=== PATIENT | female | born 1985 | race African-American/Black ===

== ENCOUNTER 2019-10-09 16:22 | Emergency (ER) | payer MEDICAID ==
[~2019-10-09] VITALS: Ht 160 cm; Wt 84.0 kg
[~2019-10-09 16:22] MED LIST: FOLIC ACID; IRON; [UNRECOGNIZED DRUG - OTHER]
[2019-10-09] MEDS ORDERED: TRAMADOL 50MG TABLET PO ONE (18:00)
[2019-10-09 19:55] VITALS: BP 122/67
== END 2019-10-09 19:56 | disposition home or self-care (01) ==
LOC: ER 16:22
DX: R07.89 Other chest pain (principal); M54.2 Cervicalgia; V49.49XA Driver injured in collision with other motor vehicles in traffic accident, initial encounter; Y93.89 Activity, other specified; Y92.89 Other specified places as the place of occurrence of the external cause; Y99.8 Other external cause status
CPT/HCPCS: 71045; 81025; 99284

== ENCOUNTER 2021-11-12 20:33 | Emergency (ER) | payer OTHER, MEDICAID ==
[~2021-11-12] VITALS: Ht 160 cm; Wt 93.0 kg
[2021-11-12 23:00] VITALS: BP 112/66
[2021-11-12] MEDS ORDERED: ACET-2708 PO (23:02)
== END 2021-11-12 23:15 | disposition home or self-care (01) ==
LOC: ER 20:33
DX: B34.9 Viral infection, unspecified (principal)
CPT/HCPCS: 99282